=== PATIENT | male | born 1970 | race Caucasian/White ===

== ENCOUNTER 2024-05-21 12:04 | Emergency (ER) | payer OTHER ==
[2024-05-21 12:22] VITALS: BP 129/79; PULSE 68; RESP 20; TEMP 98.8; BMI 28.3
[2024-05-21 14:30] LABS: HEMATOCRIT 43.7 % (35.4-49); HEMOGLOBIN 14.1 G/dL (11.7-16.9); MCH 31.6 pg (25.7-33.7); MCHC 32.2 g/dl (32.0-35.9); PLATELET COUNT 343.5 10^3/uL (134-434); RBC 4.46 10^6/uL (4.00-5.60); RDW 13.5 % (11.9-15.9); WHITE BLOOD COUNT 6.4 10^3/uL (4.0-10.8)
[2024-05-21 14:51] LABS: ALBUMIN 4.2 g/dl (3.4-5.0); ALK PHOS 90 U/L (45-117); ANION GAP 7 mmol/L (4-13); BILIRUBIN,TOTAL 0.5 mg/dl (0.2-1); CHLORIDE 105 mmol/L (98-107); CO2 27 mmol/L (21-32); CREATININE 0.9 mg/dl (0.6-1.3); GLUCOSE,RANDOM 107 mg/dl (74-106); POTASSIUM 4.3 mmol/L (3.5-5.1); SGOT/AST 17 U/L (15-37); SGPT/ALT 15 U/L (7-52); SODIUM 139 mmol/L (136-145); TOT PROT 6.4 g/dl (6.4-8.2)
[2024-05-21 15:39] LABS: PLATELET ESTIMATE SLT INCREASE
== END 2024-05-21 16:58 | disposition home or self-care (01) ==
LOC: FER 12:04
DX: R42 Dizziness and giddiness (principal); F10.90 Alcohol use, unspecified, uncomplicated; R20.0 Anesthesia of skin; R20.2 Paresthesia of skin; R00.2 Palpitations; R45.1 Restlessness and agitation; F41.9 Anxiety disorder, unspecified
CPT/HCPCS: 36415; 80053; 83880; 84484; 85027; 99284-25

== ENCOUNTER 2024-05-22 19:38 | Emergency (ER) | payer OTHER ==
[2024-05-22 19:55] VITALS: BP 134/84; PULSE 64; RESP 18; TEMP 99.3; BMI 28.3
[2024-05-22] MEDS ORDERED: MECLIZINE HCL 25 MG TABLET (FP) ONE (20:37)
[2024-05-22] MEDS: MECLIZINE HCL 25 MG TABLET (FP) PO ONE (20:40)
== END 2024-05-22 22:20 | disposition home or self-care (01) ==
LOC: FER 19:38
DX: R42 Dizziness and giddiness (principal); F10.90 Alcohol use, unspecified, uncomplicated; Y90.9 Presence of alcohol in blood, level not specified
CPT/HCPCS: 70450-TC; 99284-25

== ENCOUNTER 2024-08-14 07:26 | Day surgery (SDC) | payer OTHER ==
[2024-08-12 14:58] VITALS: BMI 28.3
[2024-08-14 07:47] VITALS: RESP 18; TEMP 97.7
[2024-08-14] MEDS ORDERED: PROPOFOL 160 ML ONE (08:06)
[2024-08-14] MEDS ORDERED: LIDOCAINE HCL/PF 2% SDV 5ML VIAL ONE (08:06)
[2024-08-14 09:11] VITALS: BP 122/64; PULSE 69
== END 2024-08-14 09:11 | disposition home or self-care (01) ==
LOC: FASU-ENDO 07:26
PROVIDERS: ATTEND Internal Medicine Gastroenterology
PROC: 0DBK8ZX Excision of Ascending Colon, Via Natural or Artificial Opening Endoscopic, Diagnostic (ICD-10-PCS; principal; 2024-08-14 08:23)
DX: Z12.11 Encounter for screening for malignant neoplasm of colon (principal); K63.5 Polyp of colon; K57.30 Diverticulosis of large intestine without perforation or abscess without bleeding
CPT/HCPCS: 88305-TC